=== PATIENT | female | born 1955 | race Caucasian/White ===

== ENCOUNTER 2018-06-26 05:42 | Day surgery (SDC) | payer OTHER, MEDICAID ==
[2018-06-26] MEDS ORDERED: PROPOFOL 20 ML (07:30)
== END 2018-06-26 12:22 | disposition home or self-care (01) ==
LOC: GIL 05:42
DX: Z12.11 Encounter for screening for malignant neoplasm of colon (principal); K64.8 Other hemorrhoids; I10 Essential (primary) hypertension
CPT/HCPCS: 45378